=== PATIENT | female | born 1965 | race Two or more races ===

== ENCOUNTER 2024-06-22 23:06 | Emergency (ER) | payer BC ==
[~2024-06-22] VITALS: Ht 154.9 cm; Wt 68.0 kg
[2024-06-22] MEDS ORDERED: TRAZODONE HCL5 GM PO (23:29)
[2024-06-22] MEDS ORDERED: ABILIFY2 MG PO (23:29)
[2024-06-23] MEDS ORDERED: ORPHENADRINE CITRATE 30 MG/ML AMPUL IM STA (05:11)
[2024-06-23] MEDS ORDERED: KETOROLAC TROMETHAMINE 60 MG VIAL IM STA (05:11)
[2024-06-23] MEDS ORDERED: DEXAMETHASONE SODIUM PHOSPHATE 4 MG/ML VIAL IM STA (05:12)
[2024-06-23] MEDS ORDERED: ORPHENADRINE CITRATE 30 MG/ML AMPUL ONE (05:24)
[2024-06-23] MEDS ORDERED: DEXAMETHASONE SODIUM PHOSPHATE 4 MG/ML VIAL ONE (05:25)
[2024-06-23] MEDS ORDERED: KETOROLAC TROMETHAMINE 60 MG VIAL IM ONE (05:25)
== END 2024-06-23 06:43 | disposition home or self-care (01) ==
LOC: ER 23:06
DX: S46.912A Strain of unspecified muscle, fascia and tendon at shoulder and upper arm level, left arm, initial encounter (principal); W19.XXXA Unspecified fall, initial encounter; Y93.89 Activity, other specified; Y92.89 Other specified places as the place of occurrence of the external cause; Y99.8 Other external cause status; M54.50 Low back pain, unspecified